=== PATIENT | male | born 1935 | race Caucasian/White ===

== ENCOUNTER 2020-07-07 15:05 | Emergency (ER) | payer MEDICARE, OTHER ==
[~2020-07-07 15:05] MED LIST: ACETAMINOPHEN-1 EAC1 PO; CENTRUM SILVER1 EAC1 PO; ELIQUIS5 MG PO; LEVOFLOXACIN500 MG PO; TOPROL XL 25 MG25 MG PO; ZOCOR 40 MG TAB40 MG PO
[2020-07-07 17:17] LABS: HEMOGLOBIN 13.5 gm/dl (14.0-17.5); RED BLOOD COUNT 4.26 M/UL (4.20-5.50); WHITE BLOOD COUNT 5.6 K/UL (4.5-11.0)
[2020-07-07 17:59] LABS: BUN/CREATININE RATIO 22 (0-10)
== END 2020-07-07 18:00 | disposition short-term general hospital (02) ==
LOC: ER1 15:05
PROVIDERS: Internal Medicine
DX: S06.5X9A Traumatic subdural hemorrhage with loss of consciousness of unspecified duration, initial encounter (principal); I51.9 Heart disease, unspecified; Z95.0 Presence of cardiac pacemaker; W19.XXXA Unspecified fall, initial encounter
CPT/HCPCS: 70450; 70486; 72125; 80053; 84484; 85025; 93005; 99285

== ENCOUNTER 2020-07-10 17:49 | Emergency (ER) | payer MEDICARE, OTHER | END 2020-07-10 20:02 | disposition short-term general hospital (02) | LOC: ER1 17:49 | DX: I61.8 Other nontraumatic intracerebral hemorrhage (principal); F17.210 Nicotine dependence, cigarettes, uncomplicated; Z95.0 Presence of cardiac pacemaker | CPT/HCPCS: 70450; 93005; 99285 ==

== ENCOUNTER 2020-09-09 21:58 | Inpatient (IN) | payer MEDICARE, OTHER ==
[~2020-09-09] VITALS: Ht 167.6 cm
[2020-09-09 22:52] LABS: HEMOGLOBIN 10.4 gm/dl (14.0-17.5); RED BLOOD COUNT 3.51 M/UL (4.20-5.50); WHITE BLOOD COUNT 5.1 K/UL (4.5-11.0)
[2020-09-09 23:35] LABS: BUN/CREATININE RATIO 13 (0-10)
[2020-09-10 00:48] LABS: HEMOGLOBIN 10.7 gm/dl (14.0-17.5); RED BLOOD COUNT 3.63 M/UL (4.20-5.50); WHITE BLOOD COUNT 5.4 K/UL (4.5-11.0)
[2020-09-10 01:31] LABS: BUN/CREATININE RATIO 11 (0-10)
[2020-09-10 07:58] LABS: BUN/CREATININE RATIO 11 (0-10)
[2020-09-10] MEDS ORDERED: AMIODARONE HCL200 MG PO (09:39)
[2020-09-10] MEDS ORDERED: PROTONIX 40 MG40 M1 PO (09:40)
[2020-09-10] MEDS ORDERED: QUETIAPINE FUMA25 MG PO (09:40)
[2020-09-10] MEDS ORDERED: SODIUM CHLORIDE1 GM PO (09:40)
[2020-09-10] MEDS ORDERED: BUSPIRONE HCL7.5 MG PO (09:41)
[2020-09-10] MEDS ORDERED: FLOMAX 0.4 MG0.4 MG PO (09:42)
[2020-09-10] MEDS ORDERED: FLORINEF 0.1 M0.1 MG PO (09:43)
[2020-09-10] MEDS ORDERED: KEPPRA 500 MG500 MG PO (09:43)
[2020-09-10] MEDS ORDERED: ATORVASTATIN CA80 MG PO (09:44)
[2020-09-10] MEDS ORDERED: FLECAINIDE ACET50 MG PO (09:44)
[2020-09-10] MEDS ORDERED: LO-DOSE ASPIRIN81 MG PO (10:01)
[2020-09-10] MEDS ORDERED: VENTOLIN HFA 66.7 GM INH (10:06)
[2020-09-11 08:18] LABS: BUN/CREATININE RATIO 9 (0-10)
[2020-09-11 09:41] LABS: RED BLOOD COUNT 4.58 M/UL (4.20-5.50); WHITE BLOOD COUNT 7.9 K/UL (4.5-11.0)
[2020-09-12 02:56] LABS: RED BLOOD COUNT 4.1 M/UL (4.20-5.50)
[2020-09-12 03:20] LABS: BUN/CREATININE RATIO 13 (0-10)
--- NOTE | 2020-09-12 15:55 | NUR ---
PT INSTRUCTED ON TO DRINK PLENTY OF FLUIDS , TO GET PLENTY OF REST NOT TO BE OUT IN HOT SUN, GET HIS BLOOD WORK DONE ORDERED TO FOLLOW UP WITH PRIMARY MD , APPT MADE WITH PRIMARY MD , INSTRUCTED NOT TO TAKE ANY TYLENOL, AND HOLD OFF ALSO ON HIS CHOLESTEROL MEDICATION UNTIL HE SEES HIS PRIMARY MD, PT VERBALIZES
[2020-09-13 10:14] LABS: HBSAG SCREEN Negative (Negative); HEP A AB, IGM Negative (Negative); HEP B CORE AB, IGM Negative (Negative); HEP C VIRUS AB <0.1 (0.0-0.9)
== END 2020-09-12 15:52 | disposition home or self-care (01) | DRG 565 ==
LOC: ER1 21:58 → CDU 09-10 02:26 → MED SURG 4 09-10 15:28
PROVIDERS: Family Medicine; Internal Medicine; Physician Assistant; ADMIT Internal Medicine
DX: T79.6XXA Traumatic ischemia of muscle, initial encounter (principal); E27.40 Unspecified adrenocortical insufficiency; W18.30XA Fall on same level, unspecified, initial encounter; I49.5 Sick sinus syndrome; G40.909 Epilepsy, unspecified, not intractable, without status epilepticus; I10 Essential (primary) hypertension; I48.0 Paroxysmal atrial fibrillation; K21.9 Gastro-esophageal reflux disease without esophagitis; Z20.822 Contact with and (suspected) exposure to COVID-19; E78.5 Hyperlipidemia, unspecified; J44.9 Chronic obstructive pulmonary disease, unspecified; R29.6 Repeated falls; I95.1 Orthostatic hypotension; N40.0 Benign prostatic hyperplasia without lower urinary tract symptoms; K59.00 Constipation, unspecified; Y93.89 Activity, other specified; Y92.89 Other specified places as the place of occurrence of the external cause; Y99.8 Other external cause status; Z98.890 Other specified postprocedural states; Z95.0 Presence of cardiac pacemaker; Z80.8 Family history of malignant neoplasm of other organs or systems; Z87.891 Personal history of nicotine dependence; Z86.73 Personal history of transient ischemic attack (TIA), and cerebral infarction without residual deficits
CPT/HCPCS: 36415; 70450; 71045; 80048; 80053; 80074; 81001; 82140; 82550; 82553; 82607; 83615; 83735; 83874; 84100; 84439; 84443; 84484; 85007; 85025; 85027; 85610; 86140; 93005; 94664; 94760; 97161; 99285; J7030; U0002

== ENCOUNTER 2020-09-30 12:33 | Emergency (ER) | payer MEDICARE, OTHER ==
[~2020-09-30 12:33] MED LIST changes: +AMIODARONE HCL200 MG PO; +ATORVASTATIN CA80 MG PO; +BUSPIRONE HCL7.5 MG PO; +FLECAINIDE ACET50 MG PO; +FLOMAX 0.4 MG0.4 MG PO; +FLORINEF 0.1 M0.1 MG PO; +KEPPRA 500 MG500 MG PO; +LO-DOSE ASPIRIN81 MG PO; +PROTONIX 40 MG40 M1 PO; +QUETIAPINE FUMA25 MG PO; +SODIUM CHLORIDE1 GM PO; +VENTOLIN HFA 66.7 GM INH
[2020-09-30 13:43] LABS: RED BLOOD COUNT 4.07 M/UL (4.20-5.50); WHITE BLOOD COUNT 5.3 K/UL (4.5-11.0)
[2020-09-30 14:06] LABS: BUN/CREATININE RATIO 12 (0-10)
[2020-09-30] MEDS ORDERED: PERCOCET 5-3251 EACH PO (18:35)
[2020-09-30] MEDS ORDERED: CEPHALEXIN500 M1 PO (21:23)
== END 2020-09-30 22:20 | disposition home or self-care (01) ==
LOC: ER1 12:33
PROVIDERS: Physician Assistant
DX: N30.00 Acute cystitis without hematuria (principal); K86.89 Other specified diseases of pancreas; M84.48XA Pathological fracture, other site, initial encounter for fracture; I10 Essential (primary) hypertension
CPT/HCPCS: 74170; 80053; 81001; 83690; 85025; 99284; Q9967

== ENCOUNTER 2020-10-10 17:58 | Emergency (ER) | payer MEDICARE, OTHER ==
[~2020-10-10 17:58] MED LIST changes: +CEPHALEXIN500 M1 PO; +PERCOCET 5-3251 EACH PO
[2020-10-10 19:48] LABS: HEMOGLOBIN 12.2 gm/dl (14.0-17.5); RED BLOOD COUNT 4.19 M/UL (4.20-5.50); WHITE BLOOD COUNT 5.8 K/UL (4.5-11.0)
[2020-10-10 20:08] LABS: BUN/CREATININE RATIO 10 (0-10)
== END 2020-10-10 22:02 | disposition home or self-care (01) ==
LOC: ER1 17:58
PROVIDERS: Physician Assistant
DX: S50.01XA Contusion of right elbow, initial encounter (principal); I48.91 Unspecified atrial fibrillation; K21.9 Gastro-esophageal reflux disease without esophagitis; J44.9 Chronic obstructive pulmonary disease, unspecified; Z86.73 Personal history of transient ischemic attack (TIA), and cerebral infarction without residual deficits; W19.XXXA Unspecified fall, initial encounter
CPT/HCPCS: 71045; 73080; 80053; 82550; 82553; 83874; 83880; 84484; 85025; 93005; 99284